=== PATIENT | female | born 1950 | race Caucasian/White ===

== ENCOUNTER → 2016-06-29 | Outpatient (CLI) | payer MEDICARE, OTHER ==
[~2016-06-29] MED LIST: ASPIR 8181 MG PO; MICARDIS80 MG PO; PRILOSEC DPS20 MG PO; SYNTHROID DP0.075 MG PO
== END | disposition home or self-care (01) ==
LOC: RAD.S 08:17
DX: Z12.31 Encounter for screening mammogram for malignant neoplasm of breast (principal)